=== PATIENT | female | born 2000 | race Caucasian/White ===

== ENCOUNTER 2023-06-19 11:03 | Emergency (ER) | payer OTHER ==
[~2023-06-19] VITALS: Ht 154.9 cm; Wt 77.1 kg
[2023-06-19 11:42] LABS: BASO % 0.4 % (0.0-1.0); EOS # 0.1 10*3/uL (0.0-0.4); EOS % 0.7 % (1.0-4.0); LYMPH # 2.2 10*3/uL (1.3-4.4); LYMPH % 27.2 % (27.0-41.0); MEAN CELL VOLUME 91.7 fl (81.0-99.0); MEAN CORPUSCULAR HGB 30.2 pg (27.0-31.0); MEAN CORPUSCULAR HGB CONC 32.9 g/dl (33.0-37.0); MEAN PLATELET VOLUME 10.6 fl (9.6-12.3); MONO # 0.4 10*3/uL (0.1-1.0); MONO % 4.7 % (3.0-9.0); NEUT # 5.4 10*3/uL (2.3-7.9); NEUT % 66.8 % (47.0-73.0); PLATELET COUNT AUTOMATED 255 10*3/uL (130-400); RED BLOOD COUNT 4.47 10*6/uL (4.10-5.10); RED CELL DISTRI WIDTH 12.1 % (0-14.5)
[2023-06-19 12:25] LABS: BUN 10 mg/dl (9-23); CHLORIDE 108 mmol/L (98-107)
== END 2023-06-19 12:05 | disposition home or self-care (01) ==
LOC: ED 11:03
PROVIDERS: Nurse Practitioner Family
DX: K62.5 Hemorrhage of anus and rectum (principal); K64.9 Unspecified hemorrhoids

== ENCOUNTER 2024-07-27 15:05 | Emergency (ER) | payer OTHER ==
[~2024-07-27] VITALS: Ht 154.9 cm; Wt 63.5 kg
[2024-07-27] MEDS ORDERED: IBUPROFEN 600 MG TAB PO ONE (15:25)
== END 2024-07-27 17:43 | disposition home or self-care (01) ==
LOC: ED 15:05
DX: S63.501A Unspecified sprain of right wrist, initial encounter (principal); V89.2XXA Person injured in unspecified motor-vehicle accident, traffic, initial encounter; Y93.89 Activity, other specified; Y92.410 Unspecified street and highway as the place of occurrence of the external cause; Y99.8 Other external cause status